=== PATIENT | female | born 1950 | race Caucasian/White ===

== ENCOUNTER → 2021-02-19 | Outpatient (CLI) | payer MEDICARE ==
[~2021-02-19] MED LIST: Zofran8 MG PO
[2021-02-19 13:07] LABS: BASOPHILS ABSOLUTE AUTO 0.05 K/mm3 (0.00-0.23); BASOPHILS PERCENT AUTO 1 % (0-2); EOSINOPHILS PERCENT AUTO 5 % (0-6); Hematocrit 44.9 % (33.0-51.0); Hemoglobin 14.9 g/dL (11.5-16.0); IMMATURE GRAN ABSOLUTE AUTO 0.02 K/mm3 (0.00-0.10); IMMATURE GRAN PERCENT AUTO 0 % (0-1); LYMPHOCYTES ABSOLUTE AUTO 1.33 K/mm3 (0.84-5.20); LYMPHOCYTES PERCENT AUTO 21 % (21-46); MONOCYTES ABSOLUTE AUTO 0.94 K/mm3 (0.16-1.47); MONOCYTES PERCENT AUTO 15 % (4-13); Mean Corpuscular HGB 31.2 pg (26.0-34.0); Mean Corpuscular HGB Conc 33.2 g/dL (31.5-36.5); Mean Corpuscular Volume 94 fL (80-100); Mean Platelet Volume 11.4 fL (9.1-12.4); NEUTROPHILS ABSOLUTE AUTO 3.77 K/mm3 (1.96-9.15); NEUTROPHILS PERCENT AUTO 59 % (41-73); Platelet Count 255 K/mm3 (150-400); RDW Coefficient Variation 13.8 % (11.7-14.2); Red Blood Cell Count 4.77 M/mm3 (3.80-5.20); White Blood Cell Count 6.41 K/mm3 (4.00-11.30)
[2021-02-19 13:56] LABS: Alanine Aminotransfer (ALT/SGP 92 U/L (12-78); Albumin, Blood 3.9 g/dL (3.4-5.0); Albumin/Globulin Ratio 0.8 (0.8-1.8); Alk Phos 76 U/L (50-136); Anion Gap 6 mmol/L (6-16); Aspartate Aminotrans (AST/SGOT 70 U/L (12-37); Bilirubin, Total 0.6 mg/dL (0.1-1.0); Blood Urea Nitrogen 12 mg/dL (8-24); Bun/Creatinine Ratio 14.8 (12.0-20.0); CO2, Blood 26 mmol/L (21-32); Calcium, Blood 10.3 mg/dL (8.5-10.1); Chloride, Blood 106 mmol/L (98-108); Creatinine, Blood 0.81 mg/dL (0.40-1.00); Free Thyroxine 1.04 ng/dL (0.70-1.60); Globulin, Blood 4.6 g/dL (2.2-4.0); Glomerular Filtration Rate >60 (60-); Glucose, Blood 129 mg/dL (70-99); Sodium, Blood 138 mmol/L (136-145); Thyroid Stimulating Hormone 0.669 uIU/mL (0.360-4.800); Total Protein, Blood 8.5 g/dL (6.4-8.2)
== END | disposition home or self-care (01) ==
LOC: LAB SHORT 10:00
PROVIDERS: Family Medicine
DX: E11.9 Type 2 diabetes mellitus without complications (principal); E03.9 Hypothyroidism, unspecified; I10 Essential (primary) hypertension
CPT/HCPCS: 80053; 83036; 84439; 84443; 85025

== ENCOUNTER 2024-05-10 12:52 | Emergency (ER) | payer MEDICARE ==
[~2024-05-10] VITALS: Ht 167.6 cm; Wt 102.1 kg
[2024-05-10 13:12] VITALS: BP 153/93
== END 2024-05-10 14:55 | disposition home or self-care (01) ==
LOC: ER 12:52
DX: R51.9 Headache, unspecified (principal); J45.909 Unspecified asthma, uncomplicated; Z88.5 Allergy status to narcotic agent
CPT/HCPCS: 70450; 99284-25

== ENCOUNTER 2024-06-16 19:25 | Emergency (ER) | payer MEDICARE ==
[~2024-06-16] VITALS: Ht 167.6 cm; Wt 99.8 kg
[2024-06-16 19:34] VITALS: BP 141/88
[2024-06-16 20:08] LABS: CORONAVIRUS COVID-19 AG Negative (NEGATIVE); INFLUENZA A AG Negative (NEGATIVE); INFLUENZA B AG Negative (NEGATIVE)
== END 2024-06-16 21:47 | disposition home or self-care (01) ==
LOC: ER 19:25
PROVIDERS: Physician Assistant
DX: J10.1 Influenza due to other identified influenza virus with other respiratory manifestations (principal); J45.909 Unspecified asthma, uncomplicated; Z88.5 Allergy status to narcotic agent
CPT/HCPCS: 71046; 87428-QW; 93005; 93010; 99285-25